=== PATIENT | female | born 1945 | race Caucasian/White ===

== ENCOUNTER 2018-12-05 07:31 | Day surgery (SDC) ==
--- NOTE | 2018-11-28 14:30 | EKG Report ---
Test Performed on : 11/28/2018 1:59:46 PM Test Reason : PAT Blood Pressure : / mmHG Vent. Rate : 066 BPM Atrial Rate : 066 BPM P-R Int : 118 ms QRS Dur : 088 ms QT Int : 374 ms P-R-T Axes : 043 040 083 degrees QTc Int : 392 ms Normal sinus rhythm. Nonspecific T wave abnormality Abnormal ECG When compared with ECG of 18-DEC-2010 20:04, Vent. rate has decreased BY 40 BPM Nonspecific T wave abnormality now evident in Lateral leads QT has shortened Unconfirmed Result
[2018-11-28 14:57] LABS: AGAP 13; BUN 8 mg/dL (8-22); CALCIUM 9.6 mg/dL (8.8-10.2); CHLORIDE 102 mmol/L (98-107); COSMO 282; CREATININE 0.7 mg/dL (0.5-0.9); ESTIMATED GFR > 60; GLUCOSE 109 mg/dL (70-104); POTASSIUM 4.4 mmol/L (3.5-5.1); SODIUM 142 mmol/L (136-145); TCO2 27 mmol/L (25-35)
[2018-11-28 15:00] LABS: BASO# 0.08 X1000 (0.0-0.2); BASO% 1.1 % (0.0-0.8); EOS% 1.4 % (0.0-10.0); HEMATOCRIT 45.9 % (37.0-47.0); LYMPH# 2.36 X1000 (1.2-3.4); LYMPH% 32.5 % (20.5-51.1); MCH 30.9 PG (27-31); MCHC 34.9 g/dL (33-37); MCV 88.6 FL (81-99); MONO# 0.56 X1000 (0.11-0.59); MONO% 7.7 % (1.7-9.3); MPV 12.4 FL (7.4-10.4); NEUT# 4.16 X1000 (1.4-6.5); NEUT% 57.3 % (42.2-75.2); PLT 203 X1000 (130-400); RBC 5.18 XMIL (4.2-5.4); RDW 12.8 % (11.5-14.5); WBC 7.26 X1000 (4.8-10.8)
--- NOTE | 2018-12-04 20:30 | HISTORY AND PHYSICAL ---
HISTORY: The patient is a 73-year-old female who has been followed for some time through [facility]. The patient has been having problems with symptomatic pelvic organ prolapse, and we initially began seeing her approximately 5 months ago. The patient has been managed with pelvic floor physical therapy as well as pessaries in an attempt to alleviate her symptomatic prolapse, and is now wishing to proceed with surgical intervention. She is admitted at this time for robotic abdominal sacrocolpopexy and mid urethral sling. The risks and benefits were discussed at length. She understands and is wishing to proceed with surgical intervention. PAST MEDICAL HISTORY: Negative for diabetes, hypertension or asthma. PAST SURGICAL HISTORY: Positive for bilateral breast augmentation, mastopexy, abdominal plasty, tonsillectomy, vaginal hysterectomy, and open bilateral salpingo-oophorectomy face-lift and right arthroscopic knee surgery. She is noted to be a para 3, 0-1-3 with TAB x1. ALLERGIES: Penicillin. FAMILY HISTORY: Positive for breast cancer in her mother. SOCIAL HISTORY: Positive for tobacco but stopped in 2015. Negative for ETOH or drugs. PHYSICAL EXAMINATION: GENERAL: BMI is 31. HEENT: Normocephalic, atraumatic. PERRLA. EOMI. No thyromegaly. CV: Regular rate and rhythm without murmur, gallop, or rub. PULMONARY: Clear to auscultation and percussion. ABDOMEN: Soft. : POP-Q stage II prolapse, AA 0, BA -1, C is -8, TVL is 10, AP is -3, BP is - 6, GH is 8, and PB is 4. NEUROLOGIC: Afocal. EXTREMITIES: Without clubbing, cyanosis, or edema. ASSESSMENT AND PLAN: This is mostly an anterior apical issue. She has failed conservative management with pelvic floor physical therapy and pessary, is wishing to proceed towards surgical intervention. cc: Keanu Mathew MD [facility]
[2018-12-05] MEDS ORDERED: ZEMURON ONE ×2 (07:40→12:34)
[2018-12-05] MEDS ORDERED: XYLOCAINE-MPF 2% ONE (07:40)
[2018-12-05] MEDS ORDERED: ZOFRAN ONE (07:40)
[2018-12-05] MEDS ORDERED: DECADRON ONE (07:40)
[2018-12-05] MEDS ORDERED: DIPRIVAN 1% ONE (07:40)
[2018-12-05] MEDS ORDERED: FENTANYL ONE (07:40)
[2018-12-05] MEDS ORDERED: ROBINUL ONE (07:40)
[2018-12-05] MEDS ORDERED: LR 1,000 ML ONE ×3 (07:56→14:01)
[2018-12-05] MEDS ORDERED: GENTAMICIN 80 MG/NS 80 MG/50 ML IVPB ONE (07:56)
[2018-12-05] MEDS ORDERED: CLINDAMYCIN 900 MG/D5W 900 MG/50 ML IVPB ONE (07:56)
[2018-12-05] MEDS ORDERED: D10W 1,000 ML ONE (08:04)
[2018-12-05] MEDS ORDERED: SENSORCAINE-MPF 0.5%/EPI 1:200,000 ONE (08:04)
--- NOTE | 2018-12-05 10:24 | H&P REVIEW ---
H&P Update Document any changes: The Patient had a lot of questions. We again reviewed the procedure, the use of a mesh. She reported a prior mesh which I was unaware of. She states she is not sure it was used. She didn't recall much of our preoperative discusssion and we again reviewed the post-operative course and the procedure that was being performed. I explained this was a QOL issue and not a cancer and it was not a mandatory procedure. She stated she wanted to proceed as planned. Her daughter was in the room with her.
[2018-12-05] MEDS ORDERED: SODIUM CHLORIDE 0.9% 10 ML ONE (11:31)
[2018-12-05] MEDS ORDERED: NEO-SYNEPHRINE ONE (11:31)
[2018-12-05 11:44] LABS: URINE SOURCE CATH
[2018-12-05 11:48] LABS: BILIRUBIN URINE NEGATIVE (NEGATIVE); BLOOD URINE NEGATIVE (NEGATIVE); COLOR YELLOW; GLUCOSE URINE NEGATIVE (NEGATIVE); KETONE URINE NEGATIVE (NEGATIVE); LEUKOCYTES URINE NEGATIVE (NEGATIVE); NITRITE URINE NEGATIVE (NEGATIVE); PROTEIN URINE NEGATIVE (NEGATIVE); TURBIDITY URINE CLEAR (CLEAR); UROBILINOGEN URINE NORMAL (NORMAL)
[2018-12-05 11:49] LABS: UR EPITHELIAL CELLS <10 /HPF (<10); URINE BACTERIA NEGATIVE /HPF; URINE RBC <10 /HPF (<10); URINE WBC <10 /HPF (<10)
[2018-12-05] MEDS ORDERED: LASIX ONE (12:34)
[2018-12-05] MEDS ORDERED: TORADOL ONE (12:34)
[2018-12-05] MEDS ORDERED: NEOSTIGMINE ONE (12:37)
[2018-12-05] MEDS ORDERED: DILAUDID ONE (12:54)
[2018-12-05] MEDS: DILAUDID ONE ×4 (13:37→13:59)
[2018-12-05] MEDS ORDERED: NORCO-5 ONE (14:00)
[2018-12-05] MEDS ORDERED: PHENERGAN ONE (14:09)
[2018-12-05] MEDS ORDERED: ZOFRAN ODT PO PRN (15:23)
[2018-12-05] MEDS: TORADOL IV SCH ×2 (18:49→23:49)
[2018-12-05] MEDS: LR 1,000 ML IV SCH ×2 (18:49→23:18)
--- NOTE | 2018-12-05 19:19 | OPERATIVE NOTE ---
PROCEDURE DATE: 12/05/2018 PREOPERATIVE DIAGNOSIS: Pelvic organ prolapse. POSTOPERATIVE DIAGNOSIS: Pelvic organ prolapse. PROCEDURES: 1. Da Katie sacrocolpopexy. 2. Extensive lysis of adhesions. 3. Midurethral sling with Obtryx. 4. Cystotomy repair. SURGEON: Keanu Mathew MD. ANESTHESIA: General. ESTIMATED BLOOD LOSS: 40 mL. HISTORY: The patient is a 73-year-old female, who has had multiple plastic surgery types of operations and has had 2 prior anterior compartment defect repairs as well as an abdominal hysterectomy with bilateral salpingo-oophorectomy. The patient presented with complaints of recurrent prolapse and on examination was found to have an apical anterior issue again. She underwent urodynamic evaluation. She has undergone pelvic floor physical therapy. She is seeing Dr. Dinah Flowers at [facility]. We have been trying conservative management. She finally refused pessary and wished to proceed to robotic surgery. The risks and benefits have been discussed at length and she understood and wished to proceed. We also discussed them again in the holding area prior to surgery. OPERATIVE FINDINGS: The patient was found to have several loops of small intestine adhered to her anterior abdominal wall incision from her prior abdominoplasty. She was found to have significant adhesive disease in the posterior cul-de-sac. She was found to have significant descending colon adhesions along the left-hand side. The bladder was found to be densely adhered around the apex and then posteriorly around a portion of the apical portion of the posterior vagina. She had several pseudocysts involved in this area that were probably granuloma-type cysts related to all the sutures. An incidental cystotomy was performed in this apical dissection and this was easily identified and easily corrected with a double-layer closure. The urethra was found to be within normal limits. After completion of the procedure, both ureters were effluxing urine. The prior cystotomy repair in the dome of the bladder was found to be intact. There were no other abnormalities in the bladder. OPERATIVE PROCEDURE: Patient was taken to the operating room, placed supine position. After adequate general anesthesia obtained, she was placed in the [place]. Her abdomen and vagina were prepped and draped in the usual fashion. A supraumbilical incision was made because of her prior abdominoplasty and prior umbilical reconstruction. After the area was initially infiltrated with 0.25% Marcaine with epinephrine, the incision was made and then a 12 mm port and sheath were introduced through this incision into the abdominal cavity. Pelvic contents were visualized. Therefore, insufflation with CO2 to an intraabdominal pressure of 14 was performed. Immediately, we saw several loops of small bowel that were densely adhered to the anterior abdominal wall. These were all in one area, right in the midline consistent with her prior abdominoplasty and I had some concern regarding a possible mesh placement, but was never able to identify any mesh. We placed our left-sided ports under direct visualization after the same local anesthetic had been placed and then the right ports were placed in a similar fashion as well. The abdomen was inflated to the appropriate pressure. The patient was placed in the deep Trendelenburg position and EEA sizers were placed within the vagina and anus and Schmitt catheter was placed. The robot was docked in the usual fashion. Hot scissors in the right hand, the bipolar gyrus in the left hand, and the ProGrasp in the third arm to help with manipulation. We initially started with adhesiolysis by using the ProGrasp to gently retract the small bowel away from the anterior abdominal wall. We used primarily sharp dissection to enter the extraperitoneal region and we were able to dissect off the extraperitoneal region. However, there were 2 loops of bowel that were densely adhered, even through the peritoneum, more to the posterior rectus sheath. We actually had to incise a portion of the sheath and muscle to drop this small bowel out of the operative site. Upon doing this, we closely inspected the sheath and used cautery to provide hemostasis. We closely inspected the small bowel and it was found to be intact with no injury. We then turned our attention towards the pelvis. It also had a lot of adhesive disease, especially in the descending and sigmoid colon region with the whole posterior cul-de-sac essentially obliterated. We were able to develop a vascular space in this area and we were able to identify at that time, the endovaginal apex. We brought the vaginal apex more anterior and cephalad and then we began our dissection for the vesicovaginal plane. Shortly after beginning our dissection, we encountered a cystic structure that I initially thought was bladder. However, this turned to be some type of granulation reaction cyst in this area. We dissected that out and then continued with our dissection. We entered a second cystic structure, which actually turned out to be the bladder as we identified the Schmitt catheter by pushing the catheter in further. Because of that, we stopped in that area. We then placed a running 2.0 Vicryl ligature to close the mucosa and then a second imbricating layer with the same 2.0 Vicryl ligature was utilized to place the 2nd layer. After completion of this, we then had better idea where the cystic structure of the bladder was and we continued with our dissection. However, we were only able to go approximately 4 cm and we just ran into such dense adhesions that we could not develop a plane and I was concerned about a possible injury down in the base or the ureteric region so we stopped with our dissection at this point and only had a 4 cm dissection anteriorly. Posteriorly, once we cleared out the posterior cul-de-sac, we were then able to develop approximately 8-10 cm rectovaginal space and this was relatively easily performed. We went up to the promontory. We had to perform some adhesiolysis of the cecum away from this area to have better visualization. We also had to perform adhesiolysis of the descending colon so that we could elevate it out of the pelvis and away from the sacral promontory. Upon doing this, we elevated the peritoneum above the promontory. We incised it and were able to easily dissect down to the anterior longitudinal ligament. We created our tunnel in the usual fashion, paying attention to both the ureter and the sigmoid colon. We then trimmed our mesh with approximately 4 cm anteriorly and approximately 8 cm posteriorly. We brought the mesh intraperitoneally and changed our instruments out to 2 needle drivers. Using 2.0 [place]-Sh[place]un suture, we secured the anterior mesh with approximately 5 sutures. We then came around the apex and then posteriorly with another 10 to 12 sutures. All sutures were thrown with an initial surgeon's throw and 4 half throws after this. Third arm was brought up to the promontory and we actually doubled the distal portion of this arm because we had just enough to double it and not have to cut any off. Upon doing this, we then placed 2 sutures through this doubled mesh into the anterior longitudinal ligament paying careful attention to the vasculature of the area. We then turned our attention towards covering the mesh using a V-Loc suture. We covered 90% of the mesh with no visualization. There was a couple small areas where small little holes were still present, but they should not be problematic. After completion of this, we performed copious amounts of irrigation and dropped our pressures. All areas were noted to be hemostatic, so decision made to terminate this portion of the procedure. We closely inspected our prior bowel site dissections, and they all appeared to be within normal limits. The robot was undocked and a Daniel-Claire closure system was utilized to close the fascia and peritoneum of both the umbilical port and the assistance port and then nursing services deflated the abdomen as we were removing the ports and closed the skin incisions with 4.0 Vicryl ligature in a subcuticular fashion. Surgical glue was utilized to reapproximate the skin edges. Vaginally, we removed the Schmitt catheter and inspected the bladder throughout. Both ureters were effluxing urine. Our surgical cystotomy repair was easily identified in the apex. There was no suture material seen and we could see the imbrication of the mucosa without any difficulty in this area. We removed the cystoscope and replaced the Schmitt catheter. Output was noted to be clear. Sponge count, instrument count, needle counts correct x3 at this point. We turned our attention towards placement of the sling. The urethra was grasped proximally and distally and approximately 10 mL of the same local anesthetic was injected for periurethral dissection and pain management. A sagittal incision was made on the urethra. Metzenbaum scissors were utilized to dissect up to the ischial pubic ramus on each side at approximately 10 o'clock and 2 o'clock position. Based on the bony landmarks of the ramus as well as the insertion of the adductor longus, a stab incision was initially made on the left-hand side. A halo device was introduced through this incision to the sole rounding machine operator's finger which had been placed in the mid urethral incision. The finger directed the needle out. The mesh was attached to it, and it was retracted back through the skin. This was performed on the contralateral side in a similar fashion. Cystoscopy was again performed. There was no evidence of any mesh whatsoever and both ureters were effluxing urine without difficulty. The cystoscope was removed. Schmitt catheter was placed. Output was noted to be clear. The patient was taken out of low adjustable stirrups. She was awakened, taken to recovery room with vital signs stable. cc: Keanu aMthew MD
[2018-12-05] MEDS ORDERED: COLACE PO SCH (21:00)
[2018-12-05] MEDS ORDERED: PERIDEX MT SCH (21:00)
[2018-12-05] MEDS: NORCO-5 PO PRN (21:44)
[2018-12-06] MEDS: NORCO-5 PO PRN (03:52)
[2018-12-06] MEDS: TORADOL IV SCH (05:47)
--- NOTE | 2018-12-06 06:57 | DISCHARGE SUMMARY ---
ADMISSION DATE: 12/05/2018 DISCHARGE DATE: PRINCIPAL DIAGNOSIS: Pelvic organ prolapse. PROCEDURE: Da Katie abdominal sacrocolpopexy, mid urethral sling with Obtryx, extensive lysis of adhesions. HISTORY: The patient is a 73-year-old female who has had multiple operations and several pelvic vaginal reconstruction attempts, who presented with recurrent symptoms and refused other therapy. She had been to [facility] as well and she decided to proceed with sacrocolpopexy. HOSPITAL COURSE: The patient with the above-stated procedure. Blood loss at time was approximately 40 mL. Postoperative course has been uncomplicated. She did have an incidental cystotomy during the vesicovaginal dissection. Because of that, we are leaving the catheter in. She was instructed on how to remove it on Tuesday, which would be 6 days, and the hole was very small, approximately 1 cm. This should have plenty of time for healing at the 6 day period. She will remove the catheter at that time and present to our office for a voiding trial. She was discharged home. Instructions for followup as noted. DISCHARGE MEDICATIONS: [place] and [place]. DISCHARGE INSTRUCTIONS: She is instructed a regular diet, decreased activity. cc: Keanu Mathew MD
[2018-12-06 07:19] VITALS: BP 123/67
== END 2018-12-06 07:58 | disposition home or self-care (01) ==
LOC: 4N 07:31 → OR 07:31
PROVIDERS: ATTEND Obstetrics & Gynecology
PROC: GY.CYST (2018-12-05 10:29)
CPT/HCPCS: 80048; 81001; 85025; 93005; 93010; 94761; 94799; A9270; C1771; C1781; J1100; J1170; J1580; J1885; J1940; J2370; J2405; J2550; J3010; J7120; S2900

== ENCOUNTER 2019-06-28 06:00 | Observation (INO) ==
[2019-06-28] MEDS ORDERED: REGLAN ONE (06:41)
[2019-06-28] MEDS ORDERED: TRANSDERM-SCOP ONE (06:41)
[2019-06-28] MEDS ORDERED: PEPCID ONE (06:41)
[2019-06-28] MEDS ORDERED: KEFZOL 1 GM/D5W 2 GM/100 ML IVPB ONE (06:42)
[2019-06-28] MEDS ORDERED: LR 1,000 ML ONE (06:42)
[2019-06-28] MEDS ORDERED: NORCURON ONE (06:52)
[2019-06-28] MEDS ORDERED: XYLOCAINE-MPF 2% ONE (06:52)
[2019-06-28] MEDS ORDERED: DIPRIVAN 1% ONE (06:52)
[2019-06-28] MEDS ORDERED: MURI-LUBE MINERAL OIL ONE (06:52)
[2019-06-28] MEDS ORDERED: QUELICIN (DOSE) ONE (06:52)
[2019-06-28] MEDS ORDERED: BACITRACIN ONE (06:52)
[2019-06-28] MEDS ORDERED: SODIUM CHLORIDE 0.9% 10 ML ONE ×2 (06:52→11:57)
[2019-06-28] MEDS ORDERED: LUBRIFRESH PM OPH OINTMENT ONE (06:55)
[2019-06-28] MEDS ORDERED: METHYLENE BLUE 0.5% ONE (06:56)
[2019-06-28] MEDS ORDERED: DECADRON ONE (07:32)
[2019-06-28] MEDS ORDERED: ZOFRAN ONE (07:32)
[2019-06-28] MEDS ORDERED: FENTANYL ONE (07:47)
[2019-06-28] MEDS ORDERED: EPHEDRINE ONE (08:32)
[2019-06-28] MEDS ORDERED: STERILE WATER INJ. ONE (08:32)
--- NOTE | 2019-06-28 09:51 | OPERATIVE NOTE ---
PROCEDURE DATE: 06/28/2019 PREOPERATIVE DIAGNOSIS: Lobular carcinoma, mid upper left breast. POSTOPERATIVE DIAGNOSIS: Lobular carcinoma, mid upper left breast. PRINCIPAL PROCEDURE: 1. Left breast lumpectomy. 2. Left axillary sentinel lymph node biopsy. SURGEON: Corinna Lechuga MD. FINANCIAL REPORTING ANALYST: Dr. Lio Garcia and Tyra Jacobson RN. ANESTHESIA: General. ESTIMATED BLOOD LOSS: 75 mL. DRAINS: Per Dr. Garcia. INDICATIONS: Ms Radha Galeano is a 73-year-old white female who has had multiple surgeries on her breasts in the past. She has had a history of breast augmentation and then removal of her implants with breast reduction, and most recently she has been diagnosed with a lobular carcinoma in the upper mid left breast. We discussed treatment options and she wanted a left breast lumpectomy and sentinel lymph node biopsy with Plastic reconstruction. FINDINGS: She had a large lobular carcinoma of the upper mid left breast. We took a generous lumpectomy. She does have a lot of previous scarring in her breast in addition to this large lobular carcinoma. We found several sentinel nodes. I removed 1 lymph node that was enlarged but it had no counts and we labeled that a nonsentinel lymph node. I removed a sentinel lymph node had a 10 second count of over 14,000 and then there was another sentinel node that was our 3rd specimen. After removal of these sentinel nodes, the counts in the left axilla were essentially 0. On palpation of the remaining left axilla, there were no abnormally enlarged lymph nodes. There was no matting of lymph nodes together. PROCEDURE: The patient was brought to the operating room, received general anesthesia, was intubated. She had been marked per Dr. Garcia. She was prepped and draped per Dr. Garcia and the Plastic Surgery team. He began the operation by removing her left breast nipple and marking a reduction pattern incision and then I created a skin flap superiorly, staying out of the breast tissue. I used cat claw retraction and the cautery for creating the superior flap. Then I could palpate this tumor and I took a generous lumpectomy in the upper mid aspect of the left breast using cautery circumferentially around this tumor. It was a generous lumpectomy. The lumpectomy went from just underneath the skin in the subcutaneous tissue to down to the pectoralis major muscle. The lumpectomy specimen was removed from the field. Then I made a separate incision in the left axilla using a 15 blade scalpel and again, this incision was carried down through the subcutaneous tissue to the fat of the axilla proper using cautery and retraction with hand held . I used the Navigator to identify 2 sentinel lymph nodes and a non sentinel lymph node. When the sentinel lymph nodes were removed from the left axilla, there were essentially no counts in the left axilla. A 10 second count of the 1st sentinel lymph node was over 14,000. I sent the sentinel nodes for permanent section. Further palpation of the left axilla showed no other matted or abnormal lymph nodes. At this point, I took all the specimen down to pathology so that I could review them with our pathologist. Dr. Garcia was present to continue with bilateral breast reduction. cc: Corinna Lechuga MD [facility]
[2019-06-28] MEDS ORDERED: KEFZOL 1 GM/D5W 1 GM/50 ML IVPB ONE (11:00)
[2019-06-28] MEDS ORDERED: NEO-SYNEPHRINE ONE (11:57)
[2019-06-28] MEDS ORDERED: OFIRMEV 1000 MG/ISOTONIC SOLN 1,000 MG/100 ML BOTTLE ONE (12:01)
[2019-06-28] MEDS ORDERED: ROBINUL ONE (12:39)
[2019-06-28] MEDS ORDERED: NEOSTIGMINE ONE (12:39)
[2019-06-28] MEDS ORDERED: CARDIZEM IV ONE (13:20)
[2019-06-28] MEDS ORDERED: VERSED ONE ×2 (13:23→13:24)
[2019-06-28] MEDS ORDERED: LOPRESSOR ONE ×2 (13:36→13:49)
--- NOTE | 2019-06-28 13:37 | EKG Report ---
Test Performed on : 06/28/2019 1:28:53 PM Test Reason : HR elevated Blood Pressure : / mmHG Vent. Rate : 154 BPM Atrial Rate : 138 BPM P-R Int : 000 ms QRS Dur : 086 ms QT Int : 296 ms P-R-T Axes : 000 017 194 degrees QTc Int : 474 ms Critical Test Result: High HR Atrial fibrillation. with rapid ventricular response. Marked ST abnormality, possible inferolateral subendocardial injury Abnormal ECG When compared with ECG of 28-NOV-2018 13:59, Atrial fibrillation. has replaced Sinus rhythm. Vent. rate has increased BY [address] now depressed in Inferior leads ST now depressed in Anterolateral leads Inverted T waves have replaced nonspecific T wave abnormality in Lateral leads Confirmed by Elana SEAY, Kedar Fontanez ([id number]) on 06/28/2019 2:31:51 PM
[2019-06-28] MEDS ORDERED: CORDARONE 150 MG/D5W 150 MG/100 ML IV.SOLN IV ONE (13:57)
[2019-06-28] MEDS ORDERED: CORDARONE 360 MG/D5W 360 MG/200 ML IV.SOLN IV ONE (13:57)
[2019-06-28] MEDS ORDERED: LOPRESSOR IV ONE (13:57)
[2019-06-28] MEDS ORDERED: NEO-SYNEPHRINE 50 MG in NS 250 ML IV SCH (14:00)
[2019-06-28] MEDS ORDERED: TYLENOL PO PRN (14:40)
[2019-06-28] MEDS ORDERED: ZOFRAN IV PRN (14:40)
[2019-06-28] MEDS ORDERED: LOPRESSOR IV PRN (14:43)
[2019-06-28 15:01] LABS: HEMATOCRIT 42.6 % (37.0-47.0); HEMOGLOBIN 14.3 g/dL (12.0-16.0); MCH 30.8 PG (27-31); MCHC 33.6 g/dL (33-37); MCV 91.8 FL (81-99); MPV 11.8 FL (7.4-10.4); RBC 4.64 XMIL (4.2-5.4); RDW 12.7 % (11.5-14.5); WBC 14.68 X1000 (4.8-10.8)
[2019-06-28 15:19] LABS: AGAP 20; BUN 9 mg/dL (8-22); CALCIUM 8.2 mg/dL (8.8-10.2); CHLORIDE 101 mmol/L (98-107); COSMO 279; CREATININE 0.6 mg/dL (0.5-0.9); ESTIMATED GFR > 60; GLUCOSE 184 mg/dL (70-104); MAGNESIUM 1.6 mg/dL (1.5-2.7); POTASSIUM 4.1 mmol/L (3.5-5.1); SODIUM 138 mmol/L (136-145); TCO2 17 mmol/L (25-35)
[2019-06-28] MEDS: NORCO-7.5 PO PRN ×2 (15:35→20:45)
[2019-06-28] MEDS: LOPRESSOR PO SCH ×2 (15:35→20:46)
--- NOTE | 2019-06-28 15:39 | Diag Imaging Result Doc PS360 ---
EXAM: CHEST-PORTABLE HISTORY: chest pain TECHNIQUE: Single view COMPARISON: 12/18/2010 FINDINGS: The lungs are well expanded. The heart is not enlarged. The vessels are not distended. There are no infiltrates. No effusion identified. There are bilateral catheters. IMPRESSION: Negative exam. Electronically signed by Jese Wells 06/28/2019 3:36 PM
--- NOTE | 2019-06-28 15:46 | CARDIOLOGY CONSULTATION ---
DATE: 06/28/2019 INDICATION FOR CONSULTATION: Atrial fibrillation. HISTORY OF PRESENT ILLNESS: Ms. Galeano is a 73-year-old, white female, who presented for an elective operation. It sounded like she had a bilateral breast reduction along with a lumpectomy and sentinel node biopsy. In the postoperative period she converted into a rapid atrial fibrillation and had some hemodynamically instability. She originally was seen by Dr. Vaughn. They managed this with intravenous amiodarone, small doses of IV Lopressor along with some phenylephrine. After a short while the patient converted to sinus rhythm. She is somewhat groggy from the standpoint of postoperative anesthesia. She had no complaints at the time of my evaluation. PAST MEDICAL HISTORY: Previously saw Dr. Bateman. She has a history of: 1. Paroxysmal atrial fibrillation. 2. Atrial flutter status post ablation in January [address] Cool. 3. Hypertension. 4. Hypothyroidism. SOCIAL HISTORY: She does not smoke. FAMILY HISTORY: Significant for hypertension. REVIEW OF SYSTEMS: A 10 system review of systems was unable to be obtained secondary to the patient's confusion and sedation postoperatively. PHYSICAL EXAMINATION: She is afebrile. Her most recent heart rate was in the 70s or so. She had systolics in the 110s to 120s.General: She is again groggy somewhat sedated. HEENT: Oropharynx is moist. Normal dentition. Eye examination is pink conjunctivae. White sclerae. Neck: Examination shows no obvious thyromegaly or thyroid tenderness. Cardiovascular: She sounds to be in a regular rate and rhythm. Telemetry shows sinus. She has no murmurs. Chest: Her chest exam is somewhat limited secondary to the postoperative bandages. It is clear bilaterally. She has no increased work of breathing. Abdomen: Soft, nontender. She has no obvious organomegaly. Extremities: She has no lower extremity edema. She has warm and well perfused extremities. PERTINENT DATA: We do not have any new laboratory data at this time. Her most recent electrocardiogram was noted on the , and shows rapid atrial fibrillation. Today at 13:28 was 154 beats per minute. She has mild ST depressions somewhat diffusely. She did have an echocardiogram done on the of this month showing a normal ejection fraction. Mild left ventricular hypertrophy. EF was 61%. ASSESSMENT: Ms. Galeano is a 73-year-old female with a history of paroxysmal atrial fib who had postoperative atrial fibrillation and converted rather quickly with amiodarone IV and IV Lopressor. PLAN: For now we will continue her on the IV amiodarone likely for just a [address] her on small doses of beta blockers, and when possible will re-initiate Eliquis. TSH will be checked along with basic laboratories. We will not check a repeat echo considering her last 1 was approximately 1 week previous. cc: MD Marco Sigala MD
--- NOTE | 2019-06-28 16:17 | EKG Report ---
Test Performed on : 06/28/2019 3:50:44 PM Test Reason : afib with rvr Blood Pressure : / mmHG Vent. Rate : 091 BPM Atrial Rate : 091 BPM P-R Int : 134 ms QRS Dur : 082 ms QT Int : 408 ms P-R-T Axes : 050 018 106 degrees QTc Int : 501 ms Normal sinus rhythm. Cannot rule out Anterior infarct , age undetermined Abnormal ECG When compared with ECG of 28-JUN-2019 13:28, Significant changes have occurred Confirmed by Elana SEAY, Kedar Fontanez ([id number]) on 06/29/2019 7:37:02 AM
--- NOTE | 2019-06-28 16:50 | HISTORY AND PHYSICAL ---
PRIMARY CARE PROVIDER: Dr. Valenzuela. GENERAL SURGEON: Dr. Lechuga. CHIEF COMPLAINT: Atrial fibrillation with RVR. HISTORY OF PRESENT ILLNESS: Ms. Galeano is a 73-year-old female who carries a past medical history of atrial fibrillation years ago, status post ablation, has been incised in sinus rhythm since that time. She takes no home medications except for magnesium. Was in for surgery today with Dr. Lechuga and Dr. Garcia, I believe for lumpectomy and a breast reduction. After surgery and recovery, she went into atrial fibrillation with RVR with hypotension. Cardiology was called to the bedside. She was given several liter boluses of fluid and initiated on amiodarone and converted to sinus rhythm. She will be watched overnight in the ICU. She was briefly placed on a Kedar-Synephrine drip as well. We will continue with further treatment and evaluation. Currently pending labs. Her echocardiogram done on 06/20/2019 shows an EF of 61%. PAST MEDICAL HISTORY: Atrial fibrillation with RVR, status post ablation. PAST SURGICAL HISTORY: 1. Lumpectomy today. 2. Bilateral breast reduction today. 3. Bilateral breast augmentation in the past. 4. Mastopexy. 5. Abdominoplasty. 6. Tonsillectomy. 7. Vaginal hysterectomy and open bilateral salpingo-oophorectomy. 8. Facelift. 9. Right knee arthroscopy. ALLERGIES: Penicillin. HOME MEDICATIONS: Per patient she only takes magnesium. REVIEW OF SYSTEMS: The patient's only complaint at this time is some bilateral burning breast pain, rated about a 7/10. No shortness of breath. No chest pain. No palpitations. No nausea, vomiting, fever, or chills. PHYSICAL EXAMINATION: VITAL SIGNS: Temperature is 97.6 degrees, heart rate 70, respirations 15, blood pressure 138/89, O2 is 95% on room air. GENERAL: Ms. Galeano is a 73-year-old female who is lying on the bed in the ICU, in no acute distress. She is somewhat sleepy from her anesthesia, but she does wake up and answer questions appropriately. HEENT: Atraumatic, normocephalic. PERRL. NECK: Supple. Trachea midline. CARDIOVASCULAR: S1, S2 appreciated. No murmurs, gallops, rubs noted. RESPIRATORY: Lung sounds clear bilaterally. GASTROINTESTINAL: Soft, nontender, nondistended. Quiet bowel sounds 4 quadrants. NEUROLOGIC: Patient is somewhat sleepy from anesthesia, but again, she wakes up and answers questions appropriately. LABORATORY AND DIAGNOSTIC DATA: Currently pending. Last echocardiogram showed an EF of 61%. ASSESSMENT AND PLAN: 1. Atrial fibrillation with rapid ventricular response in a patient with atrial fibrillation, status post ablation in the past. We will continue with recommendations per Cardiology. Check stat labs. 2. Bilateral breast reduction. We will continue with pain regimen, incentive spirometry. 3. Further recommendations to follow physician evaluation, laboratory and diagnostic data. Dictated by NAHOMY Swan for Marco Mederos MD cc: MD Cheo Sam MD Lynn R. Buckner, MD Gordon M. Telepun, MD Gregory S. Cheatham, MD
--- NOTE | 2019-06-28 17:12 | HISTORY AND PHYSICAL ---
ADDENDUM: Patient seen and examined by me [id number]. All the laboratory, vital signs, and images were reviewed. Chest x-ray has not been reported yet, but I do not see any abnormality. There is no cardiomegaly. Some haziness at the level of the right lower lung, but nothing on my physical exam. She is completely alert. She is completely oriented x3. It looks like during the surgery and/or after the surgery, this patient had an episode of atrial fibrillation with RVR with low blood pressure. She has been placed on amiodarone drip. She has been placed on Kedar to increase the blood pressure. Her atrial fibrillation improved and now she is back to sinus rhythm. She was transferred to the ICU. No electrolyte abnormality. Her bicarb though is a little bit low at 17 and the white blood cell count is 14.6. I do not have any source of infection and this was an elective surgery. She has a history of lobular carcinoma mid upper left breast and a left breast lumpectomy with left axillary sentinel lymph node biopsy has been done. We will monitor this patient in the ICU. We have placed this patient on a liquid diet. At this moment, she has no new complaints. We also discussed about her advanced directive. We discussed this for about 15 minutes or maybe more, and she decided to be DNR level 1. She seems to be stable right now. Cardiology Department on board. I agree with the rest of the nurse practitioner's assessment and plan. cc: Marco Mederos MD
--- NOTE | 2019-06-28 19:27 | OPERATIVE NOTE ---
PROCEDURE DATE: 06/28/2019 PROCEDURE: Bilateral [place] [address], reduction mammoplasty; 85094-31, reduction mammoplasty of the other side. SURGEON: Lio Garcia MD PREOPERATIVE DIAGNOSES: 1. ICD-10 diagnosis code N62, breast hypertrophy. 2. Z85.3, personal history of breast cancer. INDICATIONS FOR PROCEDURE: This patient is a 73-year-old white female who has a recent diagnosis of breast cancer in the left breast by Dr. Lechuga. She has large breasts and has had multiple breast surgeries in the past, including mastopexy use, implants and implant removals. She is an excellent candidate because of the Edmonds pattern scar on her breast to have a lumpectomy through the Edmonds pattern and then combine that with a reduction mammoplasty. Dr. Lechuga thinks she is a good candidate for this operation, so that was the plan. She was seen in the office for informed consent for the plastic surgery procedure on 06/21/2019. She understood at that point that basically the plastic surgery procedure was doing a reduction mammoplasty after the lumpectomy was completed by Dr. Lechuga. She understood that exact bra cup size changes cannot be guaranteed, and exact pain relief from breast hypertrophy cannot be promised. She knows the risks include infection, blood loss, blood clots in legs, heart problems, lung problems, allergic reactions, or blood and serum collections in the operative sites that might require drainage. She understands the exact size and shape cannot be guaranteed, as with nonoperative breasts there can be some asymmetry from side to side. This is especially true in her case, since on the left side we have to worry about doing a proper lumpectomy. She understands the skin incisions will be around the areola from the areola to the inframammary fold and within the inframammary fold. She knows that we will be handling her nipples as skin grafts so that we can get the maximum amount of breast tissue out of her breasts. She knows that the grafts will be numb. They will not feel like regular nipples. She understands in the future she needs to have routine mammography as ordered by her family physician, [facility] physician or oncologist. DESCRIPTION OF PROCEDURE: The patient was brought to the operating room after she was marked in outpatient surgery in the sitting position. She went to the operating room and had general anesthesia, and was prepped and draped. The left breast was done first along with Dr. Lechuga. The nipple was removed after being scored with a 30 mm nipple areola marker. It was removed as a full-thickness graft, then Dr. Lechuga and I lifted the W pattern upper skin flaps, with Dr. Lechuga doing the dissection to make sure that he felt like he had good margins around the lumpectomy, under the skin and subcutaneous surface. He then carried this dissection down to the chest wall, and removed the lump with good margins. He did sentinel lymph node biopsy through a separate incision in the axilla, and once it was completed the area was converted to a breast reduction by elevating the remainder of the upper breast skin flaps, deepithelializing what could be left behind as a pedicle for central fill volume, and then resecting lateral breast tissue from the breast where it was bulky. This was irrigated with bacitracin solution. Hemostasis was achieved with electrocautery. The pedicles were tacked to the chest. Then on the right side, the operation was reproduced by removing the nipple as a full-thickness graft, cutting the upper breast skin flaps and dissecting with electrocautery to make them about the same thickness as the left side. Then resection was done on the right side to match what was done on the left side regarding the medial resection, the lumpectomy resection and the lateral section. The pedicle was tacked to the chest centrally for central fill volume after it was deepithelialized. Hemostasis was achieved with electrocautery after irrigating with bacitracin solution. She was put in sitting position. The size and shape of the breasts was found to be adequate. The right breast was opened. Some additional resection was done from the lateral portion of the central pedicle. The left breast was opened and the central pedicle was tacked to the chest higher up to get better higher central fill volume. She was then closed with some interrupted 3-0 Polysorb deep dermal sutures over drains on both sides, then a running 3-0 Polysorb deep dermal suture, followed by running 4-0 Biosyn subcuticular stitch. She was put back in sitting position. The level of the nipples to be placed was marked with a 38 mm nipple marker. This was de- epithelialized to create a recipient bed. The nipples were thinned on the back table, placed on the recipient bed, held in place with eight 4-0 silks left long to make a tie-over bolster, then a running 5-0 nylon stitch. The drains were secured with silk drain stitches. A bolster was made out of Xeroform gauze and mineral oil-soaked cotton and tied down. The remainder of the vertical incision was closed with 3-0 Polysorb interrupted deep dermal sutures, and a 4-0 Biosyn subcuticular stitch. She tolerated the procedure well and was transported to the recovery room, awake, alert and in good condition. She tolerated the entire procedure well and had no problems during the operation. She woke up fine and was transported to the recovery room in stable condition. cc: MD Marco Leon MD
[2019-06-28] MEDS ORDERED: CORDARONE 540 MG in D5W 289.2 ML IV ONE (20:00)
[2019-06-28] MEDS ORDERED: MELATONIN PO ONE (21:32)
[2019-06-29] MEDS: NORCO-7.5 PO PRN ×2 (02:47→09:32)
[2019-06-29] MEDS: LOPRESSOR PO SCH ×2 (02:47→08:23)
--- NOTE | 2019-06-29 06:35 | EKG Report ---
Test Performed on : 06/29/2019 06:23:04 AM Test Reason : afib with rvr Blood Pressure : / mmHG Vent. Rate : 068 BPM Atrial Rate : 069 BPM P-R Int : 136 ms QRS Dur : 084 ms QT Int : 390 ms P-R-T Axes : 086 084 095 degrees QTc Int : 414 ms Sinus rhythm. with premature atrial complexes. Nonspecific T wave abnormality Abnormal ECG When compared with ECG of 28-JUN-2019 15:50, (Unconfirmed) premature atrial complexes. are now present Questionable change in QRS axis QT has shortened Unconfirmed Result
[2019-06-29 07:02] LABS: AGAP 12; BUN 7 mg/dL (8-22); CALCIUM 8.5 mg/dL (8.8-10.2); CHLORIDE 103 mmol/L (98-107); COSMO 282; CREATININE 0.6 mg/dL (0.5-0.9); ESTIMATED GFR > 60; GLUCOSE 173 mg/dL (70-104); POTASSIUM 4.2 mmol/L (3.5-5.1); SODIUM 140 mmol/L (136-145); TCO2 25 mmol/L (25-35)
[2019-06-29] MEDS ORDERED: LOPRESSOR PO SCH (09:00)
[2019-06-29 10:26] VITALS: BP 113/66
--- NOTE | 2019-06-30 05:30 | DISCHARGE SUMMARY ---
ADMISSION DATE: 06/28/2019 DISCHARGE DATE: 06/29/2019 DISCHARGE DIAGNOSES: 1. Atrial fibrillation with rapid ventricular response in a patient with a history of atrial fibrillation, status post ablation in the past. 2. Bilateral breast reduction. 3. Lumpectomy yesterday. HOSPITAL COURSE: A 73-year-old, female with a past medical history of atrial fibrillation years ago status post ablation. As per the patient, she has not been taking her medications. She believed they were 2 or 3 medications but, like I said, she has not been taking it. Apparently, she was in sinus rhythm since that time. She takes no home medications except for magnesium. She was in for surgery on 06/28/2019, yesterday, with Dr. Lechuga and Dr. Garcia, and they did a lumpectomy, and actually the procedure was bilateral reduction mammaplasty, in a patient with personal history of breast cancer and breast hypertrophy. After surgery and recovery, she went into atrial fibrillation with RVR with hypotension. Cardiology was called to the bedside. She was given boluses of normal saline and initiated on amiodarone, and she converted right away to sinus rhythm. We watched this patient overnight in the ICU. She stayed in sinus rhythm. I think she was placed briefly on Kedar-synephrine drip as well. She was evaluated by Cardiology yesterday and also today, and since this patient is doing really good today, it has been felt that this patient can be discharged home today. Cardiology Department and Surgery Department had a conversation about anticoagulation and they have decided to hold anticoagulation for at least 10 days. They are not going to give her any kind of prescription at this moment, but they will call her in 10 days to give her prescriptions. The reason why she is not getting prescriptions is because she just had a surgery done and there is going to be some manipulation during these days and she has some drains also. She will be discharged with metoprolol for now. DISCHARGE PHYSICAL EXAMINATION: Vital signs: Temperature 98 degrees, pulse 62, respiratory rate 20, blood pressure 113/66, oxygen saturation 96% on room air. HEENT: Head normocephalic, atraumatic. PERRLA. Neck: Supple. No JVD. No masses. Central trachea. Chest: Clear to auscultation. No wheezing. No rales. Abdomen: Soft, nontender, nondistended. No hepatosplenomegaly. Extremities: No edema, no clubbing, no cyanosis. Neurological: The patient is alert and oriented x3. No focal deficits. LABORATORY: Sodium 140, potassium 4.2, chloride 103, bicarbonate 25, BUN 7, creatinine 0.6. Glucose 173, calcium 8.5, magnesium 2. DISCHARGE MEDICATIONS: 1. Acetaminophen 650 mg p.o. q.6 hours as needed. 2. [place] 7.5 q.4 hours as needed for pain. 3. Metoprolol 25 mg p.o. b.i.d. FOLLOW-UP: Today with Surgery Department and they will also reschedule a new follow-up with her; also, follow up with Cardiology Department in 3 to 4 weeks, but they will call the patient in a prescription for Eliquis 5 mg p.o. b.i.d. to her pharmacy of choice to start on 07/09/2019. Follow up with Dr. Lechuga on 07/05/2019 at 2 p.m. as well. TIME SPENT: Discharging this patient 20 minutes. cc: Marco Mederos MD
== END 2019-06-29 11:20 | disposition home or self-care (01) ==
LOC: OR 06:00 → ICU 06:00
PROVIDERS: ADMIT Internal Medicine; ATTEND Surgery